=== PATIENT | female | born 1960 | race Caucasian/White ===

== ENCOUNTER 2019-11-23 17:23 | Emergency (ER) | payer OTHER, SELFPAY ==
--- NOTE | ~2019-11-23 | XR_ITS ---
XR finger 2nd RT min 2V 11/23/2019 18:33 Indication: Foreign body in distal phalanx Procedure: 3 views right second finger Comparison: No prior studies for comparison. Findings: There is a linear foreign body overlying the second distal phalanx. There is moderate degen erative change of the second and third DIP joints. No acute fracture or traumatic malalignment. Impression: 1: Linear radiopaque foreign body overlying the second distal phalanx. Reviewed, dictated and finalized at location A. Impression: 1: Linear radiopaque foreign body overlying the second distal phalanx.
--- NOTE | ~2019-11-23 | XR_ITS ---
XR finger 2nd RT min 2V 11/23/2019 20:58 Indication: Post foreign body removal. Procedure: 2 views right second finger Comparison: 11/23/2019 Findings: Interval removal foreign body. Moderate degenerative changes of the second distal interphal angeal joint with adjacent loose bodies. Impression: 1: Interval removal of radiopaque foreign body from second finger. Reviewed, dictated and finalized at location A. Impression: 1: Interval removal of radiopaque foreign body from second finger.
[2019-11-23 17:27] VITALS: BP 142/88; PULSE 91; RESP 18; TEMP 36.8; O2SAT 98
--- NOTE | 2019-11-23 18:20 | ED.WOUNDLAC ---
HPI - Wound/Laceration General Chief Complaint: Wound/Laceration Stated Complaint: sewing needle broke off in finger Time Seen by Provider: 11/23/19 17:49 Source: patient Mode of arrival: ambulatory Limitations: no limitations History of Present Illness HPI narrative: This is a 59 year old female that presents to the ER for foreign body in the right 2nd finger. Reports she was embroidering and her right second finger went under the machine. Reports the needle went through her nail. Reports the end of the needle broke off. Unsure of her last tetanus vaccine. Denies decreased range of motion or numbness. Related Data Allergies Allergy/AdvReac Type Severity Reaction Status Date / Time codeine Allergy Unknown Verified 11/23/19 17:32 Review of Systems Review of Systems: Narrative: CONSTITUTIONAL: Denies fever SKIN: Reports laceration NEUROLOGIC: Denies numbness All systems reviewed & are unremarkable except as noted in HPI and below PMFSH Past Medical History Medical History (Updated 11/23/19 @ 21:11 by Sandrita Raza PA-C) History of chronic back pain Social History Social History (Updated 11/23/19 @ 18:22 by Sandrita Raza PA-C) Substance use: never Exam Narrative: Exam Narrative: GENERAL: Well-appearing, well-nourished, and in no acute distress. HEAD: Normocephalic, atraumatic. EYES: EOMI. EXTREMITIES: Normal range of motion. No edema. Right 2nd finger with thread sticking out of the nail. Needle goes into the pad of the finger, but is not sticking out. Normal sensation SKIN: Warm, dry, no rash. NEURO: No focal deficits. Alert and oriented x3. PSYCH: Normal mood and affect Course Vital Signs Vital signs: Vital Signs Temperature 98.3 F 11/23/19 17:27 Pulse Rate 91 11/23/19 17:27 Respiratory Rate 18 11/23/19 17:27 Blood Pressure 142/88 H 11/23/19 17:27 Pulse Oximetry 98 11/23/19 17:27 Temperature 98.3 F 11/23/19 17:27 Pulse Rate 91 11/23/19 17:27 Respiratory Rate 18 11/23/19 17:27 Blood Pressure 142/88 H 11/23/19 17:27 Pulse Oximetry 98 11/23/19 17:27 MDM - Wound/Laceration MDM Narrative Medical decision making narrative: Patient presents to the emergency department for possible foreign body in the right second finger. X-ray confirms this. Successfully removed by myself. Patient's wound was irrigated. Patient updated on tetanus. Post removal x-ray shows successful removal of foreign body. Patient will be started on oral antibiotics and given plastic/hand surgery for follow-up. Patient is stable and felt appropriate for further outpatient evaluation. She was given warnings to return to the ER Imaging Data Radiologist's impression: ITS Impressions Finger X-Ray 11/23/19 18:37 Impression: 1: Linear radiopaque foreign body overlying the second distal phalanx. Finger X-Ray 11/23/19 21:06 Impression: 1: Interval removal of radiopaque foreign body from second finger. Critical Care Time Critical Care Time Critical Care Time: No Discharge Plan Discharge Clinical Impression: Foreign body of finger of right hand Qualifiers: Encounter type: initial encounter Qualified Code(s): S60.459A - Superficial foreign body of unspecified finger, initial encounter Patient Disposition: Home, Self-Care Condition: Stable Instructions: Antibiotic Form, Soft Tissue Foreign Body (ED) Additional Instructions: Return to the emergency department if you experience fever, redness or swelling of your wound, abnormal drainage from your wound, or any other symptoms that are concerning to you. Take oral antibiotic as prescribed. Apply antibiotic ointment daily. Do not soak the wound. Clean with mild soap and water daily Follow-up with plastic surgery. Call to make an appointment Prescriptions: New cephalexin 500 mg capsule 500 mg PO Q6H 7 Days Qty: 28 RF: 0 Follow-up/Referrals: Tristan Banks MD [Physician] - 1 Week [facility] Fuentes
[2019-11-23] MEDS: TETANUS,DIPHTHERIA,AC PERTUSSIS ADULT (0.5 ML) BOOSTRIX IM (18:27)
[2019-11-23 21:30] VITALS: BP 135/83; PULSE 61; RESP 16; TEMP 36.6; O2SAT 98
[2019-11-23] MEDS: ceFAZolin SODIUM 1 GM VIAL 500 GM IM (21:35)
== END 2019-11-23 21:47 | disposition home or self-care (01) ==
PROVIDERS: Emergency Provider Emergency Medicine; PCP Family Medicine
DX: S60.450A Superficial foreign body of right index finger, initial encounter (principal); Z23 Encounter for immunization; W45.8XXA Other foreign body or object entering through skin, initial encounter; W29.2XXA Contact with other powered household machinery, initial encounter
CPT/HCPCS: 73140; 90471; 90715; 96372; 99283; J0690

== ENCOUNTER 2020-06-12 23:06 | Emergency (ER) | payer OTHER, SELFPAY ==
--- NOTE | ~2020-06-12 | CT_ITS ---
EXAMINATION: CT brain wo con EXAM DATE: 06/12/2020 23:50 INDICATION: Weakness. TECHNIQUE: Spiral CT of the head was performed without contrast. Axial, coronal and sagittal images were reviewed. The dose-length product (DLP) for this examination was 681.00 mGy-cm. The exposure w as tailored according to patient size, and iterative reconstruction (ASIR) was used as additional dos e reduction technique. There is no prior study for comparison. FINDINGS: There is no acute intraparenchymal hemorrhage. No evidence of intraparenchymal brain mass lesion. No evidence of acute infarction. There is no mass effect or midline shift. The ventricles are normal in size. There are no extra-axial collections. There are no acute calvarial fractures. T he orbits are unremarkable. Soft tissue is unremarkable. The visualized sinuses and mastoid air ludin ls are well aerated. IMPRESSION: 1. No acute intracranial findings. Reviewed, dictated and finalized at location . ISH INSTRUCTOR
--- NOTE | ~2020-06-12 | XR_ITS ---
EXAMINATION: XR chest 2V EXAM DATE: 06/12/2020 23:40 INDICATION: Weakness, chest pain. TECHNIQUE: Frontal and lateral projections of the chest obtained and reviewed. There is no prior estella dy for comparison. FINDINGS: There is low lung volume causing pulmonary crowding. No definite acute airspace disease. N o pneumothorax or pleural effusion. Cardiomediastinal silhouette is normal. Spine stimulator device. Lumbar and cervical fusion hardware. IMPRESSION: 1. Low lung volume causing pulmonary vascular crowding. 2. No confluent consolidation. Reviewed, dictated and finalized at location G. TYPE OPERATOR
[2020-06-12 23:08] VITALS: BP 116/67; PULSE 102; RESP 17; TEMP 36.6; O2SAT 96
--- NOTE | 2020-06-12 23:17 | ECG_ITS ---
Measurements Intervals [place] Rate: 98 P: 18 GA: 152 QRS: -9 QRSD: 97 T: 11 QT: 367 QTc: 469 Interpretive Statements SINUS RHYTHM BORDERLINE T WAVE ABNORMALITY- INFERIOR LEADS BASELINE ARTIFACT- I, II, AVR, AVF BORDERLINE ECG Electronically Signed On 06-13-2020 6:42:20 SET UP WORKER by Hai Ley D.O.
--- NOTE | 2020-06-12 23:36 | ED.CHESTPAIN ---
HPI - Chest Pain General Chief Complaint: Chest Pain <Sandrita Raza PA-C - Last Filed: 06/13/20 02:06> Stated Complaint: Chest Pain <Sandrita Raza PA-C - Last Filed: 06/13/20 02:06> Time Seen by Provider: 06/12/20 23:21 <Sandrita Raza PA-C - Last Filed: 06/13/20 02:06> Source: patient <Sandrita Raza PA-C - Last Filed: 06/13/20 02:06> Mode of arrival: EMS <Sandrita Raza PA-C - Last Filed: 06/13/20 02:06> Limitations: intoxication <Sandrita Raza PA-C - Last Filed: 06/13/20 02:06> History of Present Illness HPI narrative: This is a 59 year old female that presents to the ER for intermittent chest pain over the last week. Reports intermittent substernal tightness. Reports it lasts for seconds and resolves on its own. Tonight she took her nightly marijuana and had sudden onset chest pain with shortness of breath. Reports she has had increasing stress recently and has attributed her symptoms to this. Denies fever, cough, or lower extremity edema. <Sandrita Raza PA-C - Last Filed: 06/13/20 02:06> Related Data Allergies/Adverse Reactions: Allergies Allergy/AdvReac Type Severity Reaction Status Date / Time codeine Allergy Unknown Verified 11/23/19 17:32 <Sandrita Raza PA-C - Last Filed: 06/13/20 02:06> Review of Systems Review of Systems: Narrative: CONSTITUTIONAL: Denies fever CARDIOVASCULAR: Reports chest pain. Denies edema. RESPIRATORY: Reports dyspnea. Denies cough <Sandrita Raza PA-C - Last Filed: 06/13/20 02:06> All systems reviewed & are unremarkable except as noted in HPI and below <Sandrita Raza PA-C - Last Filed: 06/13/20 02:06> [facility] Past Medical History Medical History: Medical History (Updated 06/13/20 @ 02:00 by Sandrita Raza PA-C) History of chronic back pain <Sandrita Raza PA-C - Last Filed: 06/13/20 02:06> Social History Social History: Social History (Updated 11/23/19 @ 18:22 by Sandrita Raza PA-C) Substance use: never <Sandrita Raza PA-C - Last Filed: 06/13/20 02:06> Exam Narrative: Exam Narrative: GENERAL: Appears intoxicated, well-nourished, and in no acute distress. HEAD: Normocephalic, atraumatic. EYES: PERRLA and EOMI. ENT: Nares clear, no rhinorrhea or epistaxis. Mucous membranes moist. Oropharynx without tonsillar hypertrophy exudate or other lesions. Bilateral TMs pearly hernandez non-bulging NECK: Supple. No adenopathy or masses. CHEST: Clear to auscultation. No respiratory distress. No wheezes rales or rhonchi HEART: Regular rate and rhythm. No murmur heard. Normal peripheral pulses. EXTREMITIES: Normal range of motion. No edema. SKIN: Warm, dry, no rash. NEURO: No focal deficits. Alert and oriented x3. PSYCH: Normal mood and affect <Sandrita Raza PA-C - Last Filed: 06/13/20 02:06> Course Course Emergency Course: Patient's repeat troponin was negative <Samy Santos MD - Last Filed: 06/13/20 03:01> MANAGER MAINTENANCE/PA Physician Supervision I have personally seen and evaluated the patient with the advanced practice provider Patient 59-year-old presented after she has been having intermittent chest discomfort after using her nightly medicine all marijuana Exam patient awake alert no acute distress Neck incision management repeat troponins were negative on the patient x2 <Samy Santos MD - Last Filed: 06/13/20 03:01> Vital Signs Vital signs: Vital Signs Temperature 36.6 C 06/12/20 23:08 Pulse Rate 102 H 06/12/20 23:08 Respiratory Rate 17 06/12/20 23:08 Blood Pressure 116/67 06/12/20 23:08 Pulse Oximetry 96 06/12/20 23:08 Temperature 36.6 C 06/12/20 23:08 Pulse Rate 70 06/13/20 01:45 Respiratory Rate 16 06/13/20 01:45 Blood Pressure 138/74 06/13/20 01:45 Pulse Oximetry 99 06/13/20 01:45 <Sandrita Raza PA-C - Last Filed: 06/13/20 02:06> Vital Signs Temperature 36.6 C 06/12/20 23:08 Pulse Rate 10
[2020-06-13 00:10] LABS: Basophils Percent Auto 0.4 % (0.2-1.2); Eosinophils Absolute Auto 0.2 K/mm3 (0-0.3); Eosinophils Percent Auto 2.5 % (0-4.4); Hemoglobin 12.7 g/dL (12.0-15.0); Immature Granulocyte Absolute 0.03 K/mm3 (0.00-0.031); Immature Granulocyte Percent A 0.4 % (0-0.5); Lymphocytes Absolute Auto 1.98 K/mm3 (0.9-3.2); Lymphocytes Percent Auto 27.3 % (18.3-44.2); Mean Corpuscular HGB Conc 34.3 g/dl (32-36); Mean Corpuscular Hemoglobin 32.2 pg (26-34); Mean Corpuscular Volume 93.9 fl (80-100); Mean Platelet Volume 9.1 fl (7.4-10.4); Monocytes Absolute Auto 0.5 K/mm3 (0.1-0.6); Monocytes Percent Auto 6.9 % (2.6-8.5); Neutrophils Absolute Auto 4.5 K/mm3 (1.3-6.7); Neutrophils Percent Auto 62.5 % (45.5-73.1); Platelet Count Result 232 k/mm3 (150-375); Red Blood Count 3.94 M/mm3 (4.2-5.4); Red Cell Distribution Width 12.7 % (11.5-14.5); White Blood Count 7.3 K/mm3 (4.5-10.0)
[2020-06-13 00:19] LABS: INR 0.9
[2020-06-13 00:20] LABS: Partial Thromboplastin Time 27.5 SECONDS (22.3-36.8)
[2020-06-13 00:22] LABS: Anion Gap 3 mmol/L (8-16); Blood Urea Nitrogen 18 mg/dL (7-17); Calcium 8.8 mg/dL (8.4-10.2); Carbon Dioxide 33 mmol/L (22-30); Chloride 103 mmol/L (98-107); Estimated CRCL calculation 63 ml/min; Estimated Glomerular Filt Rate > 60; Glucose 108 mg/dL (65-105); Potassium 3.8 mmol/L (3.4-5.0); Sodium 139 mmol/L (137-145)
[2020-06-13 00:24] VITALS: BP 136/74; PULSE 71; RESP 16; O2SAT 98
[2020-06-13 00:34] LABS: Troponin I < 0.012 ng/mL (0.000-0.034)
[2020-06-13 00:38] LABS: Alveolar/Arterial O2 Gradient 25.1 mmHg; Carboxyhemoglobin 1.2 % THb (0-2.0); Fractional Inspired Oxygen 21 %; HCO3 ABG 25.8 mEq/l (22.0-26.0); Methemoglobin ABG 0.2 %THb (0-1.5); Oxygen Content ABG 16.8 %vol (16.0-22.0); Oxygen Saturation ABG 93.2 % (95.0-100.0); Oxyhemoglobin 91.8 % THb (90.0-100.0); PCO2 ABG 46.4 mmHg (35.0-45.0); PO2 ABG 69.1 mmHg (80.0-100.0); PO2 FiO2 Ratio Arterial Blood 3.29 %; Reduced Hemoglobin 6.8 %THb (0-5.0); pH ABG 7.363 (7.350-7.450)
[2020-06-13 00:39] LABS: Device ROOM AIR; Modified Allen's Test Pass; Site Drawn RIGHT RADIAL
[2020-06-13 01:45] VITALS: BP 138/74; PULSE 70; RESP 16; O2SAT 99
[2020-06-13 02:52] LABS: Troponin I < 0.012 ng/mL (0.000-0.034)
[2020-06-13 03:15] VITALS: BP 138/72; PULSE 70; RESP 15; O2SAT 98
== END 2020-06-13 03:47 | disposition home or self-care (01) ==
PROVIDERS: Physician Assistant; Emergency Provider Emergency Medicine; PCP Family Medicine
DX: R07.9 Chest pain, unspecified (principal); R94.31 Abnormal electrocardiogram [ECG] [EKG]
CPT/HCPCS: 36415; 36600; 70450; 71046; 80048; 82375; 82805; 83050; 84484; 85025; 85610; 85730; 93005; 99284